=== PATIENT | male | born 1995 | race Caucasian/White ===

== ENCOUNTER 2019-01-10 12:59 | Emergency (ER) | payer BC, OTHER ==
[~2019-01-10] VITALS: Ht 170.2 cm; Wt 59.0 kg
[~2019-01-10 12:59] MED LIST: ACET-6134 PO
[2019-01-10 13:12] VITALS: BP 130/80
--- NOTE | 2019-01-10 13:47 | NUR ---
PT TO ER BED 4
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
--- NOTE | 2019-01-10 14:01 | NUR ---
Dr. Fields evaluating patient at bedside.
[2019-01-10] MEDS ORDERED: HYDROcodone/APAP 5/325 MG 1 TAB TAB PO ONE (14:10)
[2019-01-10] MEDS ORDERED: IBUPROFEN 600 MG TAB PO ONE (14:10)
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
[2019-01-10 14:47] VITALS: BP 132/84
--- NOTE | 2019-01-10 14:47 | NUR ---
Patient discharged with v/s stable. Written and verbal after care instructions given and explained. Patient alert, oriented and verbalized understanding of instructions. Ambulatory with steady gait. All questions addressed prior to discharge. ID band removed. Patient advised to follow up with PMD. Rx of Tylenol with Codeine No. 3, Ibuprofen given. Patient educated on indication of medication including possible reaction and side effects. Opportunity to ask questions provided and answered.
== END 2019-01-10 14:47 | disposition home or self-care (01) ==
LOC: MED 12:59
DX: S42.002A Fracture of unspecified part of left clavicle, initial encounter for closed fracture (principal); Z79.899 Other long term (current) drug therapy; V19.9XXA Pedal cyclist (driver) (passenger) injured in unspecified traffic accident, initial encounter; Y93.89 Activity, other specified; Y92.89 Other specified places as the place of occurrence of the external cause; Y99.8 Other external cause status
CPT/HCPCS: 29105; 73030; 99283

== ENCOUNTER 2019-05-03 13:10 | Emergency (ER) | payer BC ==
[~2019-05-03] VITALS: Ht 167.6 cm; Wt 55.6 kg
[2019-05-03 13:29] VITALS: BP 136/98
--- NOTE | 2019-05-03 14:36 | NUR ---
PT AMBULATED TO BED 6 AT THIS TIME.
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
[2019-05-03] MEDS ORDERED: KETOROLAC 60 MG/2 ML VIAL IM ONE (14:50)
[2019-05-03 15:12] VITALS: BP 130/92
--- NOTE | 2019-05-03 15:12 | NUR ---
Patient discharged with v/s stable. Written and verbal after care instructions given and explained. Patient alert, oriented and verbalized understanding of instructions. Ambulatory with steady gait. All questions addressed prior to discharge. ID band removed. Patient advised to follow up with PMD. Rx of IBUPROFEN 400 MG TAB given. Patient educated on indication of medication including possible reaction and side effects. Opportunity to ask questions provided and answered.
== END 2019-05-03 15:12 | disposition home or self-care (01) ==
LOC: MED 13:10
DX: S29.011A Strain of muscle and tendon of front wall of thorax, initial encounter (principal); Z79.1 Long term (current) use of non-steroidal anti-inflammatories (NSAID); Z98.890 Other specified postprocedural states; X58.XXXA Exposure to other specified factors, initial encounter; Y93.89 Activity, other specified; Y92.89 Other specified places as the place of occurrence of the external cause; Y99.8 Other external cause status
CPT/HCPCS: 73030; 99283; Q0092; 96372; J1885

== ENCOUNTER 2021-10-02 11:18 | Emergency (ER) | payer BC, MEDICAID ==
[~2021-10-02] VITALS: Ht 170.2 cm; Wt 68.0 kg
[~2021-10-02 11:18] MED LIST changes: +ACET-10509 PO; -ACET-6134 PO
[2021-10-02 11:42] VITALS: BP 143/73
[2021-10-02] MEDS ORDERED: NAPR-54 PO (11:57)
--- NOTE | 2021-10-02 12:55 | NUR ---
Patient discharged with v/s stable. Written and verbal after care instructions ABOUT VIRAL ILLNESS given and explained. Patient alert, oriented and verbalized understanding of instructions. AMBULATORY with steady gait. All questions addressed prior to discharge. ID band removed. Patient advised to follow up with PMD. Rx of NAPROXEN given. Patient educated on indication of medication including possible reaction and side effects. Opportunity to ask questions provided and answered.
== END 2021-10-02 12:55 | disposition home or self-care (01) ==
LOC: MED 11:18
DX: U07.1 COVID-19 (principal)
CPT/HCPCS: 99283; U0003